=== PATIENT | male | born 1965 | race Caucasian/White ===

== ENCOUNTER 2018-07-17 11:57 | Inpatient (IN) | payer OTHER ==
[~2018-07-17] VITALS: Ht 188 cm; Wt 127.0 kg
[2018-07-17] MEDS ORDERED: MORPHINE SULFATE 4 MG/ML, 1ML IVPush PRN (13:00)
[2018-07-17] MEDS ORDERED: NITROGLYCERIN SINGLE TAB 0.4 MG SL PRN (13:00)
[2018-07-17] MEDS ORDERED: SODIUM CHLORIDE FLUSH 10ML SYR IVF ONE (13:00)
[2018-07-17] MEDS ORDERED: ONDANSETRON 2MG/ML, 2ML IVPush ONE (13:00)
[2018-07-17 13:08] LABS: BASOPHILS # (AUTO) 0.02 x10^3/uL (0-0.1); BASOPHILS % (AUTO) 0 % (0-1); EOSINOPHILS # (AUTO) 0.19 x10^3/uL (0-0.4); EOSINOPHILS % (AUTO) 3 % (1-7); LYMPHOCYTES # (AUTO) 1.93 x10^3/uL (1-3.4); LYMPHOCYTES % (AUTO) 30 % (22-44); MD NO; MEAN CORPUSCULAR HEMOGLOBIN 30.7 pg (27.5-34.5); MEAN CORPUSCULAR HGB CONC 33.7 g/dL (33.2-36.2); MEAN PLATELET VOLUME 9.9 fL (7.4-10.4); MONOCYTES # (AUTO) 0.58 x10^3/uL (0.2-0.8); MONOCYTES % (AUTO) 9 % (2-9); NEUTROPHILS # (AUTO) 3.69 x10^3/uL (1.8-6.8); NEUTROPHILS % (AUTO) 58 % (42-75); PLATELET COUNT 154 x10^3/uL (130-400); RED BLOOD COUNT 5.49 x10^6/uL (4.38-5.82)
[2018-07-17] MEDS ORDERED: NITROGLYCERIN SINGLE TAB 0.4 MG SL ONE (13:11)
[2018-07-17] MEDS ORDERED: ONDANSETRON 2MG/ML, 2ML ONE (13:11)
[2018-07-17] MEDS ORDERED: MORPHINE SULFATE 4 MG/ML, 1ML ONE (13:11)
[2018-07-17 13:17] LABS: INTERNATIONAL NORMALIZED RATIO 0.99 (0.93-1.1); PROTHROMBIN TIME 10.2 Seconds (9.6-11.5)
[2018-07-17 13:19] LABS: ANION GAP 9 mmol/L (5-15); CALCIUM 8.6 mg/dL (8.5-10.1); CHLORIDE 104 mmol/L (98-107); CREATININE 0.98 mg/dL (0.7-1.3)
[2018-07-17 13:23] LABS: FREE T4 (FREE THYROXINE) 1.13 ng/dL (0.76-1.46); TROPONIN I < 0.015 ng/mL (0.000-0.045)
[2018-07-17 16:05] VITALS: BP 121/78
[2018-07-17] MEDS ORDERED: LANS30CA60 PO (16:29)
[2018-07-17] MEDS ORDERED: OLME40TA12 PO (16:29)
[2018-07-17] MEDS ORDERED: LIRA0.6P SQ-INSULIN (16:29)
[2018-07-17] MEDS ORDERED: DOXA4TAB3 PO (16:29)
[2018-07-17] MEDS ORDERED: METF500T17 PO (16:29)
[2018-07-17] MEDS ORDERED: INSU300I SQ-INSULIN (16:29)
[2018-07-17] MEDS ORDERED: METO-99 PO (16:29)
[2018-07-17] MEDS ORDERED: HEPARIN 5,000 UNITS/ML, 1ML IV ONE (17:00)
[2018-07-17] MEDS ORDERED: ACETAMINOPHEN 325 MG TABLET PO PRN (17:00)
[2018-07-17] MEDS ORDERED: TEMAZEPAM 15 MG CAPSULE PO PRN (17:00)
[2018-07-17] MEDS ORDERED: hydrALAzine 20 MG/ML, 1ML IVPush PRN (17:00)
[2018-07-17] MEDS ORDERED: ONDANSETRON 2MG/ML, 2ML IVPush PRN (17:00)
[2018-07-17] MEDS ORDERED: [UNRECOGNIZED DRUG - REMARK] MC SCH (17:00)
[2018-07-17] MEDS: INSULIN LISPRO 100 UNITS/ML, PEN SQ-INSULIN SCH ×2 (18:02→20:11)
[2018-07-17] MEDS: HEPARIN 25,000 UNITS/500ML PMX 500 ML IV PRN (18:09)
[2018-07-17 19:38] VITALS: BP 129/81
[2018-07-17 19:43] LABS: MICROSCOPIC NOT IND
[2018-07-17] MEDS: morphine SULFATE 10 MG/ML, 1ML IVPush PRN ×2 (20:01→20:47)
[2018-07-17] MEDS: METOPROLOL TARTRATE 100 MG TABLET PO SCH (20:01)
[2018-07-17] MEDS: DOXAZOSIN 2MG TABLET PO SCH (20:01)
[2018-07-17 22:28] LABS: TROPONIN I < 0.015 ng/mL (0.000-0.045)
[2018-07-17 23:58] VITALS: BP 125/88
[2018-07-18] MEDS: morphine SULFATE 10 MG/ML, 1ML IVPush PRN ×6 (00:16→22:44)
[2018-07-18] MEDS: HEPARIN 5,000 UNITS/ML, 1ML IV PRN ×3 (01:09→22:24)
[2018-07-18 04:41] LABS: BASOPHILS # (AUTO) 0.04 x10^3/uL (0-0.1); BASOPHILS % (AUTO) 1 % (0-1); EOSINOPHILS # (AUTO) 0.25 x10^3/uL (0-0.4); EOSINOPHILS % (AUTO) 4 % (1-7); LYMPHOCYTES # (AUTO) 2.51 x10^3/uL (1-3.4); LYMPHOCYTES % (AUTO) 38 % (22-44); MD NO; MEAN CORPUSCULAR HEMOGLOBIN 31.1 pg (27.5-34.5); MEAN CORPUSCULAR HGB CONC 33.6 g/dL (33.2-36.2); MEAN CORPUSCULAR VOLUME 92.7 fL (81-97); MEAN PLATELET VOLUME 9.6 fL (7.4-10.4); MONOCYTES # (AUTO) 0.53 x10^3/uL (0.2-0.8); MONOCYTES % (AUTO) 8 % (2-9); NEUTROPHILS # (AUTO) 3.34 x10^3/uL (1.8-6.8); NEUTROPHILS % (AUTO) 50 % (42-75); PLATELET COUNT 142 x10^3/uL (130-400); RED BLOOD COUNT 5.24 x10^6/uL (4.38-5.82); RED CELL DISTRIBUTION WIDTH 13.4 % (9.4-14.8)
[2018-07-18 04:54] LABS: CHLORIDE 104 mmol/L (98-107)
[2018-07-18 04:58] LABS: ALANINE AMINOTRANSFERASE 30 U/L (12-78); ALBUMIN 3.5 g/dL (3.4-5.0); ALKALINE PHOSPHATASE 55 U/L (45-117); ANION GAP 8 mmol/L (5-15); BILIRUBIN,TOTAL 0.6 mg/dL (0.2-1.0); CALCIUM 8.2 mg/dL (8.5-10.1); CHOL/HDL RATIO 4.1; CHOLESTEROL, TOTAL 154 mg/dL (140-239); CREATININE 0.67 mg/dL (0.7-1.3); HDL CHOL % 25 % (26-37); HDL CHOLESTEROL (DIRECT) 38 mg/dL (40-60); LDL CHOLESTEROL,CALCULATED 86 mg/dL (54-169); LDL/HDL RATIO 2.3 (0.5-3.0); TRIGLYCERIDES 152 mg/dL (50-200); VLDL CHOLESTEROL 30 mg/dL (0-25)
[2018-07-18 04:59] LABS: TOTAL PROTEIN 6.8 g/dL (6.4-8.2); TROPONIN I < 0.015 ng/mL (0.000-0.045)
[2018-07-18 05:00] LABS: HEMOGLOBIN A1C 9.2 % (4.2-6.3)
[2018-07-18 07:51] VITALS: BP 152/109
[2018-07-18] MEDS ORDERED: ASPI-515 PO (08:21)
[2018-07-18] MEDS: PANTOPROZOLE 40MG TABLET PO SCH (08:45)
[2018-07-18] MEDS: METOPROLOL TARTRATE 100 MG TABLET PO SCH ×2 (08:46→21:29)
[2018-07-18] MEDS: DOXAZOSIN 2MG TABLET PO SCH ×2 (08:48→21:29)
[2018-07-18] MEDS: INSULIN LISPRO 100 UNITS/ML, PEN SQ-INSULIN SCH ×4 (08:50→21:29)
[2018-07-18] MEDS ORDERED: INSULIN GLARGINE 100 UNITS/ML, PEN SQ-INSULIN SCH (09:00)
[2018-07-18] MEDS ORDERED: OLMESARTAN MEDOXOMIL 40 MG PO SCH ×2 (09:00)
[2018-07-18] MEDS ORDERED: TEMPLATE NON-FORMULARY MED. (Lansoprazole** (Prevacid**) 30 MG) PO SCH (09:00)
[2018-07-18] MEDS ORDERED: VALSARTAN 320 MG TABLET PO SCH (09:00)
[2018-07-18] MEDS ORDERED: BENZOCAINE AEROSOL SPRAY 20%, 60ML TP PRN (09:30)
[2018-07-18] MEDS ORDERED: SODIUM CHLORIDE 0.9% 1,000 ML IV ONE (09:30)
[2018-07-18] MEDS ORDERED: LIDOCAINE 2% VISCOUS, 100ML MM PRN (09:30)
[2018-07-18] MEDS ORDERED: GADOBUTROL 10 MMOL/10 ML PFS ONE (09:37)
[2018-07-18 13:05] VITALS: BP 128/90
[2018-07-18] MEDS: HEPARIN 25,000 UNITS/500ML PMX 500 ML IV PRN (14:24)
[2018-07-18 19:48] VITALS: BP 112/74
[2018-07-18 20:47] VITALS: BP 118/83
[2018-07-18 22:42] VITALS: BP 119/78
[2018-07-18 23:57] VITALS: BP 112/66
[2018-07-19] MEDS: HEPARIN 25,000 UNITS/500ML PMX 500 ML IV PRN (05:01)
[2018-07-19] MEDS: morphine SULFATE 10 MG/ML, 1ML IVPush PRN ×2 (05:02→12:14)
[2018-07-19 05:07] LABS: BASOPHILS # (AUTO) 0.03 x10^3/uL (0-0.1); BASOPHILS % (AUTO) 0 % (0-1); EOSINOPHILS # (AUTO) 0.22 x10^3/uL (0-0.4); EOSINOPHILS % (AUTO) 3 % (1-7); LYMPHOCYTES % (AUTO) 32 % (22-44); MD NO; MEAN CORPUSCULAR HEMOGLOBIN 31.6 pg (27.5-34.5); MEAN CORPUSCULAR VOLUME 92.9 fL (81-97); MEAN PLATELET VOLUME 9.5 fL (7.4-10.4); MONOCYTES # (AUTO) 0.69 x10^3/uL (0.2-0.8); MONOCYTES % (AUTO) 9 % (2-9); NEUTROPHILS # (AUTO) 4.28 x10^3/uL (1.8-6.8); NEUTROPHILS % (AUTO) 55 % (42-75); PLATELET COUNT 150 x10^3/uL (130-400); RED BLOOD COUNT 5.12 x10^6/uL (4.38-5.82); RED CELL DISTRIBUTION WIDTH 13.1 % (9.4-14.8)
[2018-07-19 05:19] LABS: ANION GAP 8 mmol/L (5-15); CALCIUM 8.7 mg/dL (8.5-10.1); CHLORIDE 102 mmol/L (98-107); CREATININE 0.86 mg/dL (0.7-1.3)
[2018-07-19] MEDS: HEPARIN 5,000 UNITS/ML, 1ML IV PRN (06:02)
[2018-07-19] MEDS ORDERED: PROPOFOL 10 MG/ML, 20ML ONE (06:56)
[2018-07-19] MEDS: INSULIN LISPRO 100 UNITS/ML, PEN SQ-INSULIN SCH ×2 (07:00→11:18)
[2018-07-19] MEDS ORDERED: REGADENOSON 0.4 MG/5 ML SYRINGE ONE (08:20)
[2018-07-19 08:38] VITALS: BP 101/69
[2018-07-19] MEDS ORDERED: APIXABAN 5 MG TABLET PO SCH (09:30)
[2018-07-19] MEDS: PANTOPROZOLE 40MG TABLET PO SCH (10:56)
[2018-07-19] MEDS: METOPROLOL TARTRATE 100 MG TABLET PO SCH (10:56)
[2018-07-19] MEDS: DOXAZOSIN 2MG TABLET PO SCH (11:16)
[2018-07-19] MEDS ORDERED: KETOROLAC 30 MG/1 ML IVPush ONE (13:00)
[2018-07-19] MEDS ORDERED: CYCL-259 PO (13:37)
[2018-07-19] MEDS ORDERED: APIX5TAB PO (13:37)
[2018-07-19 14:10] VITALS: BP 106/69
== END 2018-07-19 16:45 | disposition home or self-care (01) | DRG 309 ==
LOC: ED 14:20 → EDIP 14:43 → 5SO 15:41 → DCLOUNGE 07-19 16:26
PROVIDERS: ADMIT Internal Medicine; ATTEND Internal Medicine
PROC: 5A2204Z Restoration of Cardiac Rhythm, Single (ICD-10-PCS; principal; 2018-07-19 07:00)
DX: I48.92 Unspecified atrial flutter (principal); D68.69 Other thrombophilia; K21.9 Gastro-esophageal reflux disease without esophagitis; M48.02 Spinal stenosis, cervical region; I48.91 Unspecified atrial fibrillation; I11.9 Hypertensive heart disease without heart failure; E66.01 Morbid (severe) obesity due to excess calories; E11.9 Type 2 diabetes mellitus without complications; M25.78 Osteophyte, vertebrae; Z80.3 Family history of malignant neoplasm of breast; Z87.891 Personal history of nicotine dependence; Z88.8 Allergy status to other drugs, medicaments and biological substances; Z68.35 Body mass index [BMI] 35.0-35.9, adult
CPT/HCPCS: 36415; 71045; 72156; 78452; 80048; 80053; 80061; 81003; 82040; 82962; 83036; 83735; 83880; 84100; 84439; 84443; 84484; 85025; 85520; 85610; 85730; 92960; 93005; 93017; 93306; 93312; 93320; 93325; 96374; 96375; 99285; A9585; G0378; J1644; J1885; J2405; J2704; J2785; A9502; C9898; J1815; J2270

== ENCOUNTER → 2020-08-16 | Outpatient (CLI) | payer BC ==
[~2020-08-16] MED LIST: APIX5TAB PO; ASPI-515 PO; CYCL-259 PO; DOXA4TAB3 PO; INSU300I SQ-INSULIN; LANS30CA60 PO; LIRA0.6P SQ-INSULIN; METF500T17 PO; METO-99 PO; OLME40TA12 PO
== END | disposition home or self-care (01) ==
LOC: CVU 15:45
PROVIDERS: ATTEND Internal Medicine Cardiovascular Disease
DX: I08.2 Rheumatic disorders of both aortic and tricuspid valves (principal); I11.9 Hypertensive heart disease without heart failure; I48.91 Unspecified atrial fibrillation
CPT/HCPCS: 93306